=== PATIENT | female | born 1945 | race Caucasian/White ===

== ENCOUNTER 2018-04-24 11:27 | Emergency (ER) | payer MEDICARE, BC ==
[~2018-04-24] VITALS: Ht 165.1 cm; Wt 85.7 kg
[~2018-04-24 11:27] MED LIST: ACET500 PO; ACIDOPHILUS1 EAC1 PO; ALPR.25 PO; ASPI81EC PO; ATOR10 PO; BIOTIN2500 MCG PO; CALCAVITDA PO; CALMAGZIN PO; CITA20 PO; ERGO400 PO; GABA300 PO; GARLIC; Garlic X400 MG PO; HYDACE5 PO; IBUP200 PO; LORA10ER PO; MULVIT PO; NAPR220 PO; NYST100P TOP; OMEG1CAP30 PO; OMEP20ER PO; POLY17UD PO; POLY500 PO; PROBIOTIC1 EAC1 PO; PSYL5.85P PO; RXHYDACE PO; SIMV10 PO; Simvastatin20 MG PO; TRIHYD253B PO; Vitamin C100 M1 PO
== END 2018-04-24 12:50 | disposition home or self-care (01) ==
LOC: ER 11:27
DX: R04.0 Epistaxis (principal); F41.9 Anxiety disorder, unspecified; I10 Essential (primary) hypertension; E78.5 Hyperlipidemia, unspecified; Z88.1 Allergy status to other antibiotic agents; Z88.8 Allergy status to other drugs, medicaments and biological substances; Z91.040 Latex allergy status; Z79.899 Other long term (current) drug therapy; Z79.82 Long term (current) use of aspirin
CPT/HCPCS: 99283

== ENCOUNTER 2018-06-02 14:48 | Emergency (ER) | payer MEDICARE, BC ==
[~2018-06-02] VITALS: Ht 170.2 cm; Wt 83.9 kg
== END 2018-06-02 16:15 | disposition home or self-care (01) ==
LOC: ER 14:48
DX: R04.0 Epistaxis (principal); F41.9 Anxiety disorder, unspecified; Z88.1 Allergy status to other antibiotic agents; Z88.8 Allergy status to other drugs, medicaments and biological substances; Z91.040 Latex allergy status; Z79.899 Other long term (current) drug therapy; Z79.82 Long term (current) use of aspirin
CPT/HCPCS: 30903; 99283-25

== ENCOUNTER 2018-06-03 09:45 | Emergency (ER) | payer MEDICARE, BC ==
[~2018-06-03] VITALS: Ht 167.6 cm; Wt 81.2 kg
== END 2018-06-03 10:45 | disposition home or self-care (01) ==
LOC: ER 09:45
DX: Z48.00 Encounter for change or removal of nonsurgical wound dressing (principal); Z88.1 Allergy status to other antibiotic agents; Z88.8 Allergy status to other drugs, medicaments and biological substances; Z91.040 Latex allergy status; Z79.899 Other long term (current) drug therapy; Z79.82 Long term (current) use of aspirin; F41.9 Anxiety disorder, unspecified
CPT/HCPCS: 99282

== ENCOUNTER 2018-07-10 12:20 | Emergency (ER) | payer MEDICARE, BC ==
[~2018-07-10] VITALS: Ht 170.2 cm; Wt 68.0 kg
[~2018-07-10 12:20] MED LIST changes: +ASCO500 PO; -ASPI81EC PO; -CALMAGZIN PO; +LO-DOSE ASPIRIN81 MG PO; +Loratadine10 MG PO; +MULTI VITAMIN1 EACH PO; +Metamucil Smooth1 EA PO; -OMEP20ER PO; -PSYL5.85P PO; +Prilosec Otc20 MG PO; -Vitamin C100 M1 PO
[2018-07-10] MEDS ORDERED: Prednisone20 MG PO (13:12)
[2018-07-11] MEDS ORDERED: Cipro500 MG PO (18:49)
[2018-07-11] MEDS ORDERED: Percocet 5-3251 EACH PO (18:49)
[2018-07-11] MEDS ORDERED: Robaxin500 MG PO (18:49)
== END 2018-07-10 13:31 | disposition home or self-care (01) ==
LOC: ER 12:20
DX: M54.41 Lumbago with sciatica, right side (principal)
CPT/HCPCS: 96372; 99283-25; J1885; J7512

== ENCOUNTER 2018-07-11 15:08 | Emergency (ER) | payer MEDICARE, BC ==
[~2018-07-11] VITALS: Ht 170.2 cm; Wt 79.4 kg
[~2018-07-11 15:08] MED LIST changes: +Prednisone20 MG PO
[2018-07-11] MEDS ORDERED: Robaxin500 MG PO (18:49)
[2018-07-11] MEDS ORDERED: Percocet 5-3251 EACH PO (18:49)
[2018-07-11] MEDS ORDERED: Cipro500 MG PO (18:49)
== END 2018-07-11 19:39 | disposition home or self-care (01) ==
LOC: ER 15:08
DX: N39.0 Urinary tract infection, site not specified (principal); M25.551 Pain in right hip; Z88.8 Allergy status to other drugs, medicaments and biological substances; Z91.040 Latex allergy status; Z88.1 Allergy status to other antibiotic agents; Z79.899 Other long term (current) drug therapy; Z79.52 Long term (current) use of systemic steroids; Z79.82 Long term (current) use of aspirin
CPT/HCPCS: 96365; 96375; 99283-25; J1170; J1885; J1956; J2550

== ENCOUNTER → 2018-09-21 | Outpatient (CLI) | payer MEDICARE, BC ==
[~2018-09-21] MED LIST changes: +Cipro500 MG PO; +Percocet 5-3251 EACH PO; +Robaxin500 MG PO
== END | disposition home or self-care (01) ==
LOC: LAB 13:45 → LAB SHORT 13:45
DX: R30.1 Vesical tenesmus (principal)
CPT/HCPCS: 87077; 87086; 87186

== ENCOUNTER → 2018-10-10 | Outpatient (CLI) | payer MEDICARE, BC ==
[2018-10-10 10:49] LABS: Source, Urine Clean Catch
[2018-10-10 12:03] LABS: Bilirubin, Urine Neg (Neg); Blood, Urine Neg (Neg); Glucose Qualitative, Urine Neg (Neg); Ketones, Urine Neg (Neg); Leukocyte Esterase, Urine 2+ (Neg); Nitrite, Urine Neg (Neg); Protein, Urine Neg (Neg); Specific Gravity, Urine 1.005 (1.003-1.022); Urobilinogen, Urine NORM (Normal)
[2018-10-10 12:14] LABS: Appearance, Urine Clear (Clear); Color, Urine Yellow (P-Yellow)
[2018-10-10 12:21] LABS: Bacteria Few /hpf; Red Blood Cells, Urine Not Seen /hpf (0-2); Squamous Epithelial Cells Rare /hpf (Few)
== END | disposition home or self-care (01) ==
LOC: LAB 10:48 → LAB SHORT 10:48 → EDSTATUS 10-10 09:55 → LAB FUT 10-10 09:55
PROVIDERS: Internal Medicine
DX: R30.0 Dysuria (principal)
CPT/HCPCS: 81001; 87077; 87086; 87186

== ENCOUNTER 2018-11-04 09:26 | Day surgery (SDC) | payer MEDICARE, BC ==
[~2018-11-04] VITALS: Ht 170.2 cm; Wt 73.1 kg
--- NOTE | 2018-11-04 11:02 | NUR ---
11/04/18 1101 Selene Figueroa O2 10L VIA NONREBREATHER
== END 2018-11-04 12:09 | disposition home or self-care (01) ==
LOC: ORSCSDS 09:26
PROVIDERS: Internal Medicine Gastroenterology
PROC: 0DBP8ZX Excision of Rectum, Via Natural or Artificial Opening Endoscopic, Diagnostic (ICD-10-PCS; principal; 2018-11-04 10:45)
PROC: 0DBL8ZX Excision of Transverse Colon, Via Natural or Artificial Opening Endoscopic, Diagnostic (ICD-10-PCS; principal; 2018-11-04 10:45)
PROC: 0DBN8ZX Excision of Sigmoid Colon, Via Natural or Artificial Opening Endoscopic, Diagnostic (ICD-10-PCS; principal; 2018-11-04 10:45)
DX: R19.4 Change in bowel habit (principal); D12.3 Benign neoplasm of transverse colon; D12.5 Benign neoplasm of sigmoid colon; D12.8 Benign neoplasm of rectum; K57.30 Diverticulosis of large intestine without perforation or abscess without bleeding; K64.8 Other hemorrhoids; Z86.010 Personal history of colon polyps; I10 Essential (primary) hypertension; E78.5 Hyperlipidemia, unspecified; G47.33 Obstructive sleep apnea (adult) (pediatric); F41.9 Anxiety disorder, unspecified; Z79.899 Other long term (current) drug therapy
CPT/HCPCS: 88305; J2250; J2704; J7120

== ENCOUNTER 2019-03-05 00:38 | Emergency (ER) | payer MEDICARE, BC ==
[~2019-03-05] VITALS: Ht 165.1 cm; Wt 77.1 kg
[2019-03-05] MEDS ORDERED: Zocor20 MG (00:49)
[2019-03-05] MEDS ORDERED: CITA20 PO (00:49)
[2019-03-05] MEDS ORDERED: TRIA50 PO (00:49)
[2019-03-05] MEDS ORDERED: OMEP20ER PO (00:49)
[2019-03-05 01:13] LABS: BASOPHILS ABSOLUTE AUTO 0.06 K/mm3 (0.00-0.23); BASOPHILS PERCENT AUTO 1 % (0-2); EOSINOPHILS ABSOLUTE AUTO 0.17 K/mm3 (0.00-0.68); EOSINOPHILS PERCENT AUTO 3 % (0-6); Hemoglobin 13.4 g/dL (11.5-16.0); IMMATURE GRAN PERCENT AUTO 0 % (0-1); LYMPHOCYTES ABSOLUTE AUTO 2.11 K/mm3 (0.84-5.20); LYMPHOCYTES PERCENT AUTO 43 % (21-46); MONOCYTES ABSOLUTE AUTO 0.56 K/mm3 (0.16-1.47); MONOCYTES PERCENT AUTO 11 % (4-13); Mean Corpuscular HGB 31.8 pg (26.0-34.0); Mean Corpuscular HGB Conc 33.5 g/dL (31.5-36.5); Mean Corpuscular Volume 95 fL (80-100); Mean Platelet Volume 9.3 fL (9.1-12.4); NEUTROPHILS ABSOLUTE AUTO 2.06 K/mm3 (1.96-9.15); NEUTROPHILS PERCENT AUTO 42 % (41-73); Platelet Count 239 K/mm3 (150-400); RDW Coefficient Variation 12.5 % (11.7-14.2); RDW Standard Deviation 43.6 fL (35.1-46.3); Red Blood Cell Count 4.21 M/mm3 (3.80-5.20); White Blood Cell Count 4.96 K/mm3 (4.00-11.30)
[2019-03-05 01:31] LABS: Alanine Aminotransfer (ALT/SGP 39 U/L (12-78); Albumin, Blood 3.7 g/dL (3.4-5.0); Albumin/Globulin Ratio 1.1 (0.8-1.8); Alk Phos 85 U/L (50-136); Anion Gap 5 mmol/L (6-16); Aspartate Aminotrans (AST/SGOT 26 U/L (12-37); Bilirubin, Total 0.4 mg/dL (0.1-1.0); Blood Urea Nitrogen 15 mg/dL (8-24); CO2, Blood 29 mmol/L (21-32); Chloride, Blood 106 mmol/L (98-108); Creatinine, Blood 0.79 mg/dL (0.40-1.00); Globulin, Blood 3.4 g/dL (2.2-4.0); Glomerular Filtration Rate >60 (60-); Glucose, Blood 105 mg/dL (70-99); Potassium, Blood 3.6 mmol/L (3.5-5.5); Sodium, Blood 140 mmol/L (136-145); Total Protein, Blood 7.1 g/dL (6.4-8.2); Troponin I <0.015 ng/mL (0.000-0.040)
== END 2019-03-05 02:13 | disposition home or self-care (01) ==
LOC: ER 00:38
PROVIDERS: Emergency Medicine
DX: F41.9 Anxiety disorder, unspecified (principal); R07.9 Chest pain, unspecified; Z79.899 Other long term (current) drug therapy
CPT/HCPCS: 36415; 71046; 80053; 82947; 83690; 84484; 85025; 93005; 93010; 99285-25

== ENCOUNTER → 2020-12-29 | Outpatient (CLI) | payer MEDICARE, BC ==
[~2020-12-29] MED LIST changes: +METOPROLOL SUCC25 MG PO; +OMEP20ER PO; +TRIA50 PO; +Zocor20 MG
[2020-12-29 15:35] LABS: Source, Urine Clean Catch
[2020-12-29 16:11] LABS: Appearance, Urine Clear (Clear); Bilirubin, Urine Neg (Neg); Blood, Urine Neg (Neg); Color, Urine Yellow (P-Yellow); Glucose Qualitative, Urine Neg (Neg); Ketones, Urine Neg (Neg); Leukocyte Esterase, Urine 1+ (Neg); Nitrite, Urine Neg (Neg); Protein, Urine Neg (Neg); Specific Gravity, Urine 1.005 (1.003-1.022); Urobilinogen, Urine NORM (Normal)
[2020-12-29 16:50] LABS: Bacteria Rare /hpf; Red Blood Cells, Urine Rare /hpf (0-2); Squamous Epithelial Cells Rare /hpf (Few)
== END | disposition home or self-care (01) ==
LOC: LAB 15:32 → LAB SHORT 15:32
PROVIDERS: Internal Medicine
DX: R10.30 Lower abdominal pain, unspecified (principal); R53.83 Other fatigue
CPT/HCPCS: 81001; 87086

== ENCOUNTER 2020-12-31 23:16 | Emergency (ER) | payer MEDICARE, BC ==
[~2020-12-31] VITALS: Ht 165.1 cm; Wt 79.4 kg
[~2020-12-31 23:16] MED LIST changes: -METOPROLOL SUCC25 MG PO
[2021-01-01 00:27] LABS: BASOPHILS ABSOLUTE AUTO 0.08 K/mm3 (0.00-0.23); BASOPHILS PERCENT AUTO 1 % (0-2); EOSINOPHILS ABSOLUTE AUTO 0.14 K/mm3 (0.00-0.68); EOSINOPHILS PERCENT AUTO 2 % (0-6); Hematocrit 39.5 % (33.0-51.0); Hemoglobin 14.1 g/dL (11.5-16.0); IMMATURE GRAN ABSOLUTE AUTO 0.03 K/mm3 (0.00-0.10); IMMATURE GRAN PERCENT AUTO 0 % (0-1); LYMPHOCYTES ABSOLUTE AUTO 2.04 K/mm3 (0.84-5.20); LYMPHOCYTES PERCENT AUTO 30 % (21-46); MONOCYTES ABSOLUTE AUTO 0.77 K/mm3 (0.16-1.47); MONOCYTES PERCENT AUTO 11 % (4-13); Mean Corpuscular HGB 33.3 pg (26.0-34.0); Mean Corpuscular HGB Conc 35.7 g/dL (31.5-36.5); Mean Corpuscular Volume 93 fL (80-100); Mean Platelet Volume 9.4 fL (9.1-12.4); NEUTROPHILS PERCENT AUTO 55 % (41-73); Platelet Count 252 K/mm3 (150-400); RDW Coefficient Variation 11.9 % (11.7-14.2); RDW Standard Deviation 40.3 fL (35.1-46.3); Red Blood Cell Count 4.24 M/mm3 (3.80-5.20); White Blood Cell Count 6.76 K/mm3 (4.00-11.30)
[2021-01-01 00:36] LABS: Anion Gap 4 mmol/L (6-16); Blood Urea Nitrogen 13 mg/dL (8-24); Bun/Creatinine Ratio 15.5 (12.0-20.0); CO2, Blood 29 mmol/L (21-32); Calcium, Blood 9.1 mg/dL (8.5-10.1); Chloride, Blood 103 mmol/L (98-108); Creatinine, Blood 0.84 mg/dL (0.40-1.00); Glomerular Filtration Rate >60 (60-); Glucose, Blood 103 mg/dL (70-99); Magnesium, Blood 2.4 mg/dL (1.6-2.4); Potassium, Blood 3.4 mmol/L (3.5-5.5); Sodium, Blood 136 mmol/L (136-145)
[2021-01-01] MEDS ORDERED: METOPROLOL SUCC25 MG PO (03:21)
== END 2021-01-01 03:49 | disposition home or self-care (01) ==
LOC: ER 23:16
PROVIDERS: Student in an Organized Health Care Education/Training Program
DX: I48.91 Unspecified atrial fibrillation (principal); I10 Essential (primary) hypertension; E78.5 Hyperlipidemia, unspecified; Z88.1 Allergy status to other antibiotic agents; Z88.8 Allergy status to other drugs, medicaments and biological substances; Z91.040 Latex allergy status; Z79.899 Other long term (current) drug therapy
CPT/HCPCS: 36415; 71045; 80048; 83735; 85025; 93005; 93010; 96374; 96375; 99285-25; A9270; J7030

== ENCOUNTER → 2022-03-14 | Outpatient (CLI) | payer MEDICARE, BC ==
[~2022-03-14] MED LIST changes: +A AND D OINTM42.5 GM; +BIOTIN1 MG; +BUSPIRONE HCL5 M5 PO; +CALCIUM CIT 311 EAC7; +CODACE30; +ELIQUIS5 M3 PO; +METOPROLOL SUCC25 MG PO; +MIRALAX17 GM; +VITAMIN D-40010 MC1
[2022-03-14 11:17] LABS: Source, Urine Clean Catch
[2022-03-14 13:42] LABS: Appearance, Urine Clear (Clear); Bilirubin, Urine Neg (Neg); Blood, Urine Neg (Neg); Color, Urine Yellow (P-Yellow); Glucose Qualitative, Urine Neg (Neg); Ketones, Urine Neg (Neg); Leukocyte Esterase, Urine 1+ (Neg); Nitrite, Urine Neg (Neg); Protein, Urine Neg (Neg); Urobilinogen, Urine NORM (Normal)
[2022-03-14 14:26] LABS: Bacteria Rare /hpf; Red Blood Cells, Urine 0-2 /hpf (0-2); Squamous Epithelial Cells Few /hpf (Few)
== END | disposition home or self-care (01) ==
LOC: LAB SHORT 11:14 → LAB 11:14
PROVIDERS: Internal Medicine
DX: R30.0 Dysuria (principal)
CPT/HCPCS: 81001; 87077; 87086; 87186

== ENCOUNTER 2024-07-01 08:40 | Day surgery (SDC) | payer MEDICARE, BC ==
[~2024-07-01] VITALS: Ht 170.2 cm; Wt 75.4 kg
[2024-07-01] MEDS ORDERED: propofoL 50 ML IV ONE (09:01)
[2024-07-01] MEDS ORDERED: Lactated Ringer's 1,000 ML IV ONE ×2 (09:01→09:54)
[2024-07-01] MEDS ORDERED: ALPR.25 (09:19)
[2024-07-01] MEDS ORDERED: [UNRECOGNIZED DRUG - OTHER] (09:19)
[2024-07-01] MEDS ORDERED: LORA10ER (09:19)
[2024-07-01] MEDS ORDERED: DOCU100 (09:22)
[2024-07-01 11:26] VITALS: BP 108/70
== END 2024-07-01 11:43 | disposition home or self-care (01) ==
LOC: ORSCSDS 08:40
PROVIDERS: Internal Medicine Gastroenterology
PROC: 0DBL8ZX Excision of Transverse Colon, Via Natural or Artificial Opening Endoscopic, Diagnostic (ICD-10-PCS; principal; 2024-07-01 10:15)
PROC: 0DBN8ZX Excision of Sigmoid Colon, Via Natural or Artificial Opening Endoscopic, Diagnostic (ICD-10-PCS; principal; 2024-07-01 10:15)
DX: Z12.11 Encounter for screening for malignant neoplasm of colon (principal); D12.1 Benign neoplasm of appendix; D12.3 Benign neoplasm of transverse colon; D12.4 Benign neoplasm of descending colon; K63.5 Polyp of colon; K57.30 Diverticulosis of large intestine without perforation or abscess without bleeding; K64.4 Residual hemorrhoidal skin tags; Z86.0101 Personal history of adenomatous and serrated colon polyps; G47.33 Obstructive sleep apnea (adult) (pediatric); I10 Essential (primary) hypertension; Z79.899 Other long term (current) drug therapy; Z79.01 Long term (current) use of anticoagulants
CPT/HCPCS: 88305; J2704; J7120